=== PATIENT | female | born 1950 | race Caucasian/White ===

== ENCOUNTER → 2023-02-14 13:30 | Outpatient (CLI) | payer OTHER, SELFPAY ==
--- NOTE | 2023-02-14 13:36 | DI.MRI.S_ITS ---
PROCEDURE: MR LUMBAR SPINE WO CON INDICATIONS: Spinal stenosis, lumbar region with neurogenic cla TECHNIQUE: Noncontrast sagittal T1 spin echo and T2 fast echo, sagittal STIR, and T2 fast spin echo through the lumbar spine. In cases with scoliosis, additional coronal T2 fast spin echo may be performed. COMPARISON: [facility] Mclean, CR, XR LUMBAR SPINE 2 OR 3 VIEWS, 04/20/2022, 15:07. Outside Film, MR, MR LUMBAR SPINE WITHOUT CONTRAST, 12/14/2020, 11:18. FINDINGS: Image quality: Diagnostic, with note made of motion artifact. Alignment and Curvature: There is mild grade 1 anterolisthesis at the L4-L5 level. Associated pars defects are not seen. Bone Marrow: Marrow is of normal overall signal. No acute vertebral body compression fractures. Spinal Cord: Conus medullaris terminates at the L1 level. Visualized cord demonstrates normal signal and size. Paraspinous Soft Tissues: No paravertebral masses. T12-L1: Normal appearance. L1-L2: Normal appearance. L2-L3: Mild loss of disc height is seen. Loss of disc signal is seen. Moderate disc bulge is seen, which is eccentric to the right, with a right subarticular/foraminal disc protrusion, as on series 6, image 17. Moderate facet joint hypertrophy is seen. There is moderate bilateral neural foraminal narrowing seen, right worse than left. Moderate central canal narrowing is seen. These imaging findings have progressed compared to the prior study. L3-L4: Moderate loss of disc height is seen. Loss of disc signal is seen. Moderate disc bulge is seen, which is eccentric to the right. There is a right foraminal disc protrusion. There is a focal annular fissure seen posteriorly. At least moderate facet hypertrophy is seen at this level. There is at least moderate bilateral neural foraminal narrowing seen. Moderate to severe central canal narrowing is seen, as on series 6, image 23. There is mild progression compared to 2020. L4-L5: There is at least moderate loss of disc height and disc signal seen. Reactive marrow endplate changes are seen, which are hyperintense on T1-weighted and T2-weighted imaging and most consistent with fatty metaplasia (Modic type II changes). At least moderate disc bulge is seen, which is eccentric to the left. There is a mild central disc extrusion, with mild superior migration of the disc material. At least moderate facet hypertrophy is seen. Associated hypertrophy of the ligamentum flavum can be seen. There is at least moderate bilateral neural foraminal narrowing seen. There is a degree of compression seen upon the exiting nerve roots. Severe central canal narrowing is seen, as on series 5, image 13. These degenerative changes are mildly progressed compared to the 2020 prior. L5-S1: The disc height is well-preserved. Loss of disc signal is seen at this level. Moderate disc bulge is seen, which is eccentric to the right. There is a superimposed central disc extrusion, with mild inferior migration of the disc material. Moderate facet joint hypertrophy is seen. There is moderate left-sided neural foraminal narrowing. Moderate to severe right-sided neural foraminal narrowing is seen, with a degree of compression upon the exiting right L5 nerve root. Moderate central canal narrowing is seen. These imaging findings have progressed compared to the prior study. IMPRESSION: Multiple levels of lumbar spine degenerative change can be seen, which are overall worst at the L4-L5 level. These degenerative changes are progressed at several levels compared to 2020. Dictated by: Scott Coburn M.D. on 02/14/2023 at 13:57 Approved by: Scott Coburn M.D. on 02/14/2023 at 14:02
== END ==
PROVIDERS: PCP Family Medicine; Referring Provider Physical Medicine & Rehabilitation; Visit Provider Physical Medicine & Rehabilitation
DX: M48.062 Spinal stenosis, lumbar region with neurogenic claudication (principal); M47.816 Spondylosis without myelopathy or radiculopathy, lumbar region; M47.817 Spondylosis without myelopathy or radiculopathy, lumbosacral region
CPT/HCPCS: 72148

== ENCOUNTER 2025-02-03 11:19 | Observation (INO) | payer OTHER, SELFPAY ==
[2025-02-03] VITALS (27 sets, daily range): BP systolic 135–201; BP diastolic 76–109; PULSE 57–93; RESP 15–26; TEMP 36.3–37.1; O2SAT 95–100; BMI 34.1
--- NOTE | 2025-02-03 11:22 | EKG_ITS ---
[facility] [address] [place] [address] Test Date: 2025-02-03 Pat Name: Vanessa Plaza Department: [facility] Room: Gender: Female [employer]: CHELSIE : 1950 Requested By: Order Number: [id number] Reading MD: Eric Garcia MD Measurements Intervals [place] Rate: 54 P: 55 NC: 144 QRS: -49 QRSD: 88 T: 17 QT: 420 QTc: 398 Interpretive Statements Sinus bradycardia Possible Left atrial enlargement Left anterior fascicular block Nonspecific ST and T wave abnormality NO PRIOR TRACING Electronically Signed On 02-03-2025 11:57:52 PDT by Eric Garcia MD
--- NOTE | 2025-02-03 11:22 | DI.RAD.S_ITS ---
PROCEDURE: XR CHEST 1V INDICATIONS: Chest Pain TECHNIQUE: One view of the chest was acquired. COMPARISON: None. FINDINGS: Surgical changes and devices: None. Lungs and pleura: Lungs are clear. No pleural effusions or pneumothorax. Mediastinum: Mediastinal contours appear normal. Heart size is normal. Bones and chest wall: No suspicious bony lesions. Overlying soft tissues appear unremarkable. IMPRESSION: No acute cardiopulmonary abnormality is seen. Dictated by: Edgardo Shaikh M.D. on 02/03/2025 at 12:08 Approved by: Edgardo Shaikh M.D. on 02/03/2025 at 12:08
[2025-02-03 12:27] LABS: Add Manual Diff / Slide Review NO; Hematocrit 38.6 % (36-46); Hemoglobin 13.0 g/dL (12.0-16.0); Lymphocytes Absolute Auto 1400 /uL (1100-4500); Mean Corpuscular HGB Conc 33.8 % (30-36); Mean Corpuscular Hemoglobin 27.6 PG (26-34); Mean Corpuscular Volume 81.8 fL (80-100); Platelet Count 261 X10^3/uL (150-400)
[2025-02-03 12:38] LABS: INR 1.0 (0.9-1.3); Prothrombin Time 11.5 SECONDS (9.4-12.5)
[2025-02-03 12:40] LABS: Alanine Aminotransferase 23 IU/L (<35); Albumin 4.7 g/dL (3.5-5.0); Albumin Globulin Ratio 1.3 (1.0-2.8); Alkaline Phosphatase 78 U/L (38-126); Blood Urea Nitrogen 25 mg/dL (7-17); Calcium 9.6 mg/dL (8.4-10.2); Carbon Dioxide 26 mmol/L (22-32); Chloride 105 mmol/L (98-107); Creatine Kinase 123 U/L (30-135); Estimated Glomerular Filt Rate > 60 mL/min (>60); Globulin 3.6 g/dL (1.7-4.1); Glucose 95 mg/dL (70-99); HEMOLYSIS < 15 (0-50); Lipase 44 U/L (23-300); Magnesium 2.3 mg/dL (1.6-2.3); Potassium 4.0 mmol/L (3.4-5.1); Sodium 139 mmol/L (137-145); Total Protein 8.3 g/dL (6.3-8.2)
[2025-02-03 12:41] LABS: PTT Partial Thromboplastin Tim 29 SECONDS (25.1-36.5)
[2025-02-03 12:51] LABS: NT-proBNP (BNP-Adult 18+) 234 pg/mL (<125); Troponin I < 0.012 ng/mL (0.01-0.034)
[2025-02-03 14:54] LABS: Troponin I 0.027 ng/mL (0.01-0.034)
--- NOTE | 2025-02-03 17:00 | ED.CHESTPAIN ---
HPI - Chest Pain General Chief Complaint: Chest Pain Stated Complaint: chest pain moving up to her face Time Seen by Provider: 02/03/25 15:15 Source: patient Mode of arrival: Ambulatory Limitations: no limitations History of Present Illness HPI narrative: 74-year-old woman with a history of reflux, hypothyroidism prior hypertension but after losing 20 lb was able to discontinue medications with blood pressures consistently in the 120 range presents with midsternal chest pain radiating up into her chest started at 10:45 a.m. today. Associated with mild dizziness, no cardiac history. Pain started while she was at rest. Pain today lasted approximately 6 hours. She describes his pain is significantly different from any reflux pain she has ever had. She notes she has been more tired over the last week but attributes that to some lower back pain. No reports of dyspnea, exertional dyspnea or orthopnea. Related Data Allergies Allergy/AdvReac Type Severity Reaction Status Date / Time No Known Drug Allergies Allergy Verified 02/03/25 17:39 Review of Systems Review of Systems Narrative: Pertinent positive and negative findings as per HPI Patient History Medical History (Updated 02/03/25 @ 17:40 by Lauren Angel MD) Low back pain Acid reflux Hypothyroidism (acquired) Social History household members: spouse alcohol intake: current Smoking Status: Never smoker Exam Initial Vital Signs Initial Vital Signs: Vital Signs Temperature 98.8 F 02/03/25 11:26 Pulse Rate 93 H 02/03/25 11:26 Respiratory Rate 18 02/03/25 11:26 Blood Pressure 175/93 H 02/03/25 11:26 Pulse Oximetry 98 02/03/25 11:26 Oxygen Delivery Method Room Air 02/03/25 11:26 General: Healthy appearing, in no acute distress. Able to give a complete and coherent history. Well-nourished well-developed HEENT: Moist mucous membranes, normal sclera with reactive pupils, Respiratory: Lungs are clear to auscultation, no wheezing no rales no rhonchi. Full and symmetrical air movement Cardiac: Regular rate and rhythm no murmurs no bruits Abdomen: Soft, nontender, no rebound or guarding, no flank pain Skin: Warm and dry, no rashes Neurologic: Grossly neurologically intact with no obvious asymmetries or abnormalities Extremities: No trauma, well perfused Psych: Cooperative, appropriate insight and affect Course Orders Ordered: ED Orders 02/03/25 11:22 XR chest 1V Stat EKG-12 Lead Stat 02/03/25 12:18 Complete Blood Count AUTO DIFF Stat Comprehensive Metabolic Panel Stat Lipase Stat Magnesium Stat NT-proBNP (BNP-Adult 18+) Stat PTT Partial Thromboplastin Marbin Stat Prothrombin Time INR Stat Troponin & CK Cardiac Panel Stat 02/03/25 14:20 Troponin I Stat Discontinued Medications Aspirin (Aspirin 81 Mg Chew Tab) 324 mg PO NOW ONE Stop: 02/03/25 11:23 Vital Signs Vital signs: Vital Signs - 8 hr 02/03/25 11:26 02/03/25 14:17 02/03/25 14:18 Temperature 98.8 F Pulse Rate 93 H 60 Respiratory Rate 18 23 Blood Pressure 175/93 H 189/94 H Pulse Oximetry 98 98 Oxygen Delivery Method Room Air 02/03/25 14:18 02/03/25 14:30 02/03/25 14:30 Temperature Pulse Rate 57 L 58 L Respiratory Rate 17 18 Blood Pressure 185/99 H Pulse Oximetry 99 99 Oxygen Delivery Method 02/03/25 15:49 02/03/25 16:00 02/03/25 16:09 Temperature Pulse Rate 63 61 Respiratory Rate 16 Blood Pressure 195/99 H Pulse Oximetry 98 96 Oxygen Delivery Method 02/03/25 16:09 02/03/25 16:14 02/03/25 16:17 Temperature Pulse Rate 64 63 64 Respiratory Rate 17 21 23 Blood Pressure Pulse Oximetry 100 99 99 Oxygen Delivery Method 02/03/25 16:17 Temperature Pulse Rate Respiratory Rate Blood Pressure 186/88 H Pulse Oximetry Oxygen Delivery Method MDM - Chest Pain Lab Data 02/03/25 12:18 02/03/25 12:18 Labs: Lab Results 02/03/25 02/03/25 Range/Units 12:18 14:20 WBC 6.0 (4.5-11.0) X10^3/uL RBC 4.72 (4.0-5.2) X10^6/uL Hgb 13.0 (12.0-16.0) g/dL Hct 38.6 (36-46) % MCV 81.8 (80-100) fL MCH 27.6 (26-34) PG MCHC 33.8 (30-36) % RDW 16.7 H (11.6-14.8) % Plt Count 261 (150-400) X10^3/uL Neut % (Auto) 64.7 (50-75) % Lymph % (Auto) 23.1 L (25-40) % [place] % (Auto) 8.8 (3-14) % Eos % (Auto) 2.9 (2-4) % Baso % (Auto) 0.5 (0-2) % Neut # (Auto) 3900 (9868-3957) /uL Lymph # (Auto) 1400 (0865-5955) /uL [place] # (Auto) 500 (0-900) /uL Eos # (Auto) 200 (0-450) /uL Baso # (Auto) 0 (0-100) /uL PT 11.5 (9.4-12.5) SECONDS INR 1.0 (0.9-1.3) APTT 29 (25.1-36.5) SECONDS Sodium 139 (137-145) mmol/L Potassium 4.0 (3.4-5.1) mmol/L Chloride 105 (98-107) mmol/L Carbon Dioxide 26 (22-32) mmol/L BUN 25 H (7-17) mg/dL Creatinine 0.99 (0.52-1.04) mg/dL Estimated GFR > 60 (>60) mL/min BUN/Creatinine Ratio 25.3 H (6-22) Glucose 95 (70-99) mg/dL Calcium 9.6 (8.4-10.2) mg/dL Magnesium 2.3 (1.6-2.3) mg/dL Total Bilirubin 0.6 (0.2-1.3) mg/dL AST 39 H (14-36) IU/L ALT 23 (<35) IU/L Alkaline Phosphatase 78 (38-126) U/L Total Creatine Kinase 123 (30-135) U/L Troponin I < 0.012 0.027 (0.01-0.034) ng/mL NT-Pro-B Natriuret Pep 234 H (<125) pg/mL Total Protein 8.3 H (6.3-8.2) g/dL Albumin 4.7 (3.5-5.0) g/dL Globulin 3.6 (1.7-4.1) g/dL Albumin/Globulin Ratio 1.3 (1.0-2.8) Lipase 44 (23-300) U/L Imaging Data CT scan - chest: Radiologist's Impression: PROCEDURE: CT ANGIO CHEST PE PROTOCOL INDICATIONS: Chest pain, elevated D-dimer TECHNIQUE: After the administration of intravenous contrast, 2 mm thick sections acquired from the pulmonary apices to the posterior costophrenic angles. 3-dimensional maximum intensity projection (MIP) coronal and sagittal reformats were then acquired through the thorax. For radiation dose reduction, the following was used: automated exposure control, adjustment of mA and/or kV according to patient size. COMPARISON: None. FINDINGS: Image quality: Diagnostic. Pulmonary arteries: Pulmonary arteries are normal in size, and demonstrate no intraluminal filling defects to suggest central pulmonary embolism. Lower Neck: No enlarged lymph nodes. Thyroid: No thyroid nodules which require sonographic follow up, per consensus guidelines. Axillae: No enlarged lymph nodes. Chest Wall: Unremarkable. Bones: No suspicious osseous lesion. Lungs and Pleura: No pneumothorax or pleural effusions. Right lower lobe pulmonary nodule measuring 0.4 cm, (5/140). Heart: Heart size is normal. No pericardial effusion. Thoracic Vessels: No aortic aneurysm. Mediastinum and Janey: No enlarged lymph nodes. Esophagus: No wall thickening. No hiatal hernia. Upper Abdomen: Visualized upper abdomen solid organs and bowel loops appear normal. IMPRESSION: 1. No pulmonary embolism. 2. No acute airspace opacity. Dictated by: Jamel Renee M.D. on 02/03/2025 at 21:53 MDM Narrative Medical decision making narrative: CC: Chest pain at rest Complicating co-morbidities: Hypothyroidism, reflux, blood pressure back to normal after a 20 lb weight loss and medications have been discontinued Data collected from: patient Differential considered: Reflux, pulmonary disease, pneumothorax, acute coronary syndrome, unstable angina Exam documented above, pertinent findings include: Exam is entirely benign Lab Test results independently reviewed as above. Pertinent findings: CBC is unremarkable Chemistries are reassuring Troponin 1 and 2 are within normal limits D-dimer is elevated CT scan is ordered Independently reviewed EKG: EKG shows a rate of 54 probable left anterior fascicular block and nonspecific STT wave changes, no criteria for STEMI Imaging studies independently reviewed: Chest x-ray is unremarkable CT angiogram of the chest does not show pulmonary embolism Consultations: Discussed with Cardiology, . Agrees with beginning nitro paste, hospital admission with echocardiogram and stress test in the morning Treatments: Aspirin, nitro paste Discussion: 74-year-old woman with no previous history of cardiac issues blood pressure is well controlled with diet and exercise only presents with 6 hours of substernal chest pain radiating up into the shoulder left jaw and left face similar episode yesterday lasting approximately 30 minutes, both started while she was sitting working on her computer. Heart score equals 6 which is high risk. Given her continued elevated blood pressure in discussion with Cardiology and with shared decision-making in discussion with the patient we will be admitting her overnight for continued cardiac rule out with anticipation of echocardiogram and stress testing in the morning to further stratify Cardiac risk. Patient clearly understands that she needs to let us know she has any recurrent pain. If she does want to be started on heparin. Currently pain-free but hypertensive we will place her on half an inch of nitro paste and review blood pressures. She is somewhat bradycardic, we will not add beta blockers at this time. Discussed with admitting hospitalist service and admission accepted. Discharge Plan Departure Patient Disposition: Admitted as Observation Clinical Impression: Chest pain Qualifiers: Chest pain type: unspecified Qualified Code(s): R07.9 - Chest pain, unspecified Admit Date/Time: 02/03/25 18:15 Admit Provider: Ricardo Yang
--- NOTE | 2025-02-03 17:13 | PC.NURSE ---
Patient reports center chest pain radiating to right and up to jaw.
--- NOTE | 2025-02-03 17:32 | P.HP_ITS ---
History of Present Illness History of Present Illness Date Patient Seen: 02/03/25 Chief complaint: chest pain moving up to her face Narrative: Chief complaint: Atypical symptoms of chest pain with radiation History of present illness: 02/03: Midsternal substernal chest pain radiating to the back lasting about 6 hours associated with dizziness x2 Findings in the emergency department negative troponin EKG nonacute chest x-ray is normal D-dimer is pending Review of systems: No fever or chills rigors No unusual weight loss or weight gain No nausea vomiting diarrhea No urinary symptom No paresis Physical examination: Elderly female in no acute distress HEENT unremarkable Neck no carotid bruits Heart rate and rhythm regular Lungs clear Abdomen nontender Extremities no edema Assessment and plan Atypical chest symptoms: * Check D-dimer * CTA chest if positive * Exercise stress test if the 2 above or negative in the morning * Echocardiogram in the morning 55 minutes were involved in evaluation of this patient including direct [id number] evaluation the patient physical examination and discussion with ER provider [facility] Medical History (Updated 02/03/25 @ 17:40 by Lauren Angel MD) Low back pain Acid reflux Hypothyroidism (acquired) Social History household members: spouse Smoking Status: Never smoker Meds Home Medications and Allergies Allergies Allergy/AdvReac Type Severity Reaction Status Date / Time No Known Drug Allergies Allergy Verified 02/03/25 17:39 Exam Vital Signs (past 8 hours): - 02/03/25 11:26 02/03/25 14:17 02/03/25 14:18 Temperature 98.8 F Pulse Rate 93 H 60 Respiratory Rate 18 23 Blood Pressure 175/93 H 189/94 H Pulse Oximetry 98 98 Oxygen Delivery Method Room Air 02/03/25 14:18 02/03/25 14:30 02/03/25 14:30 Temperature Pulse Rate 57 L 58 L Respiratory Rate 17 18 Blood Pressure 185/99 H Pulse Oximetry 99 99 Oxygen Delivery Method 02/03/25 15:49 02/03/25 16:00 02/03/25 16:09 Temperature Pulse Rate 63 61 Respiratory Rate 16 Blood Pressure 195/99 H Pulse Oximetry 98 96 Oxygen Delivery Method 02/03/25 16:09 02/03/25 16:14 02/03/25 16:17 Temperature Pulse Rate 64 63 64 Respiratory Rate 17 21 23 Blood Pressure Pulse Oximetry 100 99 99 Oxygen Delivery Method 02/03/25 16:17 02/03/25 16:30 02/03/25 16:30 Temperature Pulse Rate 64 Respiratory Rate 19 Blood Pressure 186/88 H 178/93 H Pulse Oximetry 99 Oxygen Delivery Method 02/03/25 17:00 02/03/25 17:00 Temperature Pulse Rate 64 Respiratory Rate 22 Blood Pressure 181/96 H Pulse Oximetry 98 Oxygen Delivery Method Oxygen Delivery Method Room Air Objective Labs 02/03/25 12:18 02/03/25 12:18 Labs: Laboratory Results - last 24 hr 02/03/25 02/03/25 12:18 14:20 WBC 6.0 RBC 4.72 Hgb 13.0 Hct 38.6 MCV 81.8 MCH 27.6 MCHC 33.8 RDW 16.7 H Plt Count 261 Neut % (Auto) 64.7 Lymph % (Auto) 23.1 L [place] % (Auto) 8.8 Eos % (Auto) 2.9 Baso % (Auto) 0.5 Neut # (Auto) 3900 Lymph # (Auto) 1400 [place] # (Auto) 500 Eos # (Auto) 200 Baso # (Auto) 0 PT 11.5 INR 1.0 APTT 29 Sodium 139 Potassium 4.0 Chloride 105 Carbon Dioxide 26 BUN 25 H Creatinine 0.99 Estimated GFR > 60 BUN/Creatinine Ratio 25.3 H Glucose 95 Calcium 9.6 Magnesium 2.3 Total Bilirubin 0.6 AST 39 H ALT 23 Alkaline Phosphatase 78 Total Creatine Kinase 123 Troponin I < 0.012 0.027 NT-Pro-B Natriuret Pep 234 H Total Protein 8.3 H Albumin 4.7 Globulin 3.6 Albumin/Globulin Ratio 1.3 Lipase 44 Assessment & Plan Time-Based Coding :: [TOTAL MINUTES] spent with patient and on the chart (including review of chart, obtaining history, exam, reviewing outside data, placing orders, documenting exam and treatment plan, and counseling patient) on [DATE].
[2025-02-03] MEDS: NITROGLYCERIN OINT 1 INCH/GM OINT...G. 0.5 INCH TOP (17:40)
[2025-02-03] MEDS: ASPIRIN 81 MG CHEW TAB 324 MG PO (17:40)
--- NOTE | 2025-02-03 18:36 | PC.NURSE ---
Patient eating dinner.
--- NOTE | 2025-02-03 18:46 | DI.CT.S_ITS ---
PROCEDURE: CT ANGIO CHEST PE PROTOCOL INDICATIONS: Chest pain, elevated D-dimer TECHNIQUE: After the administration of intravenous contrast, 2 mm thick sections acquired from the pulmonary apices to the posterior costophrenic angles. 3-dimensional maximum intensity projection (MIP) coronal and sagittal reformats were then acquired through the thorax. For radiation dose reduction, the following was used: automated exposure control, adjustment of mA and/or kV according to patient size. COMPARISON: None. FINDINGS: Image quality: Diagnostic. Pulmonary arteries: Pulmonary arteries are normal in size, and demonstrate no intraluminal filling defects to suggest central pulmonary embolism. Lower Neck: No enlarged lymph nodes. Thyroid: No thyroid nodules which require sonographic follow up, per consensus guidelines. Axillae: No enlarged lymph nodes. Chest Wall: Unremarkable. Bones: No suspicious osseous lesion. Lungs and Pleura: No pneumothorax or pleural effusions. Right lower lobe pulmonary nodule measuring 0.4 cm, (5/140). Heart: Heart size is normal. No pericardial effusion. Thoracic Vessels: No aortic aneurysm. Mediastinum and Janey: No enlarged lymph nodes. Esophagus: No wall thickening. No hiatal hernia. Upper Abdomen: Visualized upper abdomen solid organs and bowel loops appear normal. IMPRESSION: 1. No pulmonary embolism. 2. No acute airspace opacity. Dictated by: Jamel Renee M.D. on 02/03/2025 at 21:53 Approved by: Jamel Renee M.D. on 02/03/2025 at 21:59
--- NOTE | 2025-02-03 18:58 | CM.DANOTE ---
DCP Assessment Note: Pt is a 74yo female, resident of [place], is admitted for chest pain. Pt lives in a house with , Michael. Pt's Primary Care Provider is Dr. Jacky Fernando ([facility]) and insurance is [employer] Advantage. Reviewed chart and discussed with multidisciplinary team pt's medical status and initial discharge needs. Per ED Provider, pt to be admitted for continued observation - echocardiogram and stress test scheduled for tomorrow. DCP met w/patient at bedside; introduced self and role. Patient was found in bed, alert and oriented, cooperative with assessment. Pt confirmed living situation and good support in . Pt expressed preference in discharge home when cleared. Pt has no prior history of home health or SNF Rehab. Pt agreeable to working with therapies and following their recommendations. Plan: Anticipating dc home with spouse to transport when medically cleared. CM team will follow closely for coordination of discharge plans. KATHRYN Sin Discharge Planning/Care Management CM Discharge Assessment Start: 02/03/25 18:55 Freq: Status: Active Protocol: Document 02/03/25 18:55 MW (Rec: 02/03/25 18:57 MW [id number]) Discharge Planning Assessment Assigned Discharge MARVIN Kenney Sales Exhibitor Provider Dr. Jacky Fernando Insurance [employer] [facility] DPOA/Assigned Michael Plaza, Spouse Designee Name Contact Information [phone] Advance Directives? No Has Patient been No admitted in last 30 days? Prior Living House Arrangements Household Members spouse Type of Drives own vehicle transporation used prior to admit Independent with ADL Yes 's Is patient alert and Yes oriented? Caregiver for No Another Discharge Plan Home Transportation Spouse Arrangement Referrals Initiated None needed Review Status In Process Please Provide Date 02/03/25 Initial DC Assessment Was Performed Next Review Type Continued Stay Review
[2025-02-04] MEDS: SODIUM CHLORIDE 0.9% 1,000 ML 50 ML IV (01:38)
[2025-02-04] MEDS: ACETAMINOPHEN 325 MG TABLET 650 MG PO (02:26)
[2025-02-04 03:00] VITALS: BP 114/64; PULSE 75; RESP 18; TEMP 36.8; O2SAT 94
[2025-02-04 08:00] VITALS: BP 146/76; PULSE 77; RESP 16; TEMP 36.4; O2SAT 97
--- NOTE | 2025-02-04 08:27 | DI.ECHO.S_ITS ---
[facility] : : [address] : : [place] : : [id number] : : Phone: [phone] Echocardiogram Report + + :Name: KAREN LASSITER Study Date: 02/04/2025 Height: 75 in : :[facility] ReadingLocation: Weight: 174 lb : : Gender: Female BSA: 2.1 m2 : :: 1950 Age: 74 yrs BP: 140/82 mmHg: :Reason For Study: Cardiac murmur : :Ordering Physician: CALLI, : :DARRYN Performed By: Twin Saunders : :Referring: DARRYN MCCURDY : + + Interpretation Summary The left ventricle is normal in size. Left ventricular systolic function is normal. The ejection fraction is estimated to be 60-65%. There are no focal wall motion abnormalities. Grade I diastolic dysfunction with normal left atrial pressure. The right ventricle is normal in size and function. Pulmonary artery pressures cannot be estimated because of the lack of a measurable TR jet velocity but the IVC suggests a CVP of around 3 mmHg. The left atrial size is normal. There is no significant valvular heart disease. The aortic root is normal size. Procedure: A two-dimensional transthoracic echocardiogram with color flow and Doppler was performed. The study quality was technically adequate. There is no prior echocardiogram noted for this patient. The patient was in normal sinus rhythm during the exam. Left Ventricle: The left ventricle is normal in size. Left ventricular wall thickness is mildly increased. Left ventricular systolic function is normal. The ejection fraction is estimated to be 60-65%. There are no focal wall motion abnormalities. Grade I diastolic dysfunction with normal left atrial pressure. Right Ventricle: The right ventricle is normal in size and function. Atria: The left atrial size is normal. The right atrium is normal in size. There is no Doppler evidence for an interatrial shunt. Mitral Valve: The mitral valve leaflets appear to open well. There is no mitral valve stenosis. There is trace mitral regurgitation. Aortic Valve: The aortic valve is trileaflet. Thickening of the left coronary cusp. There is no aortic valve stenosis. There is trace aortic regurgitation. Tricuspid Valve: The tricuspid valve leaflets are thin and pliable. There is trace tricuspid regurgitation. Pulmonary artery pressures cannot be estimated because of the lack of a measurable TR jet velocity but the IVC suggests a CVP of around 3 mmHg. Pulmonic Valve: The pulmonic valve is not well seen, but is grossly normal. There is a trace or physiologic amount of pulmonic regurgitation. There is no significant valvular heart disease. Great Vessels: The aortic root is normal size. The ascending aorta is normal in size. The aortic arch could not be visualized. The pulmonary is not well visualized. The IVC is of normal diameter and collapses greater than 50% with a sniff. This suggests a low right atrial pressure of 3 mm Hg. Pericardium/ Pleura There is no pericardial effusion. MMode/2D Measurements & Calculations LVIDd: 4.7 cm LVOT diam: 2.0 cm LVIDs: 2.9 cm Ao root diam: 2.9 cm FS: 37.7 % asc Aorta Diam: 3.2 cm IVSd: 1.1 cm LVPWd: 0.95 cm LV clemente. diameter/BSA (cm/m^2): 2.3 LV sys. diameter/BSA (cm/m^2): 1.4 LA A2 area: 17.3 cm2 IVC diam: 1.3 cm LA A4 area: 13.7 cm2 LA length (vol): 4.7 cm LA vol: 42.7 ml LA vol index: 20.7 ml/m2 RVD1 (basal): 2.1 cm RVD2 (mid): 2.1 cm TAPSE: 2.0 cm Doppler Measurements & Calculations Ao V2 max: 153.4 cm/sec LVOT Max Aneudy: 98.8 cm/sec Ao V2 mean: 112.3 cm/sec LV V1 max P.9 mmHg Ao max P.4 mmHg LV V1 VTI: 18.6 cm Ao mean P.5 mmHg MERCEDES(I,D): 2.0 cm2 Ao V2 VTI: 29.2 cm MERCEDES(V,D): 2.1 cm2 sev ratio: 0.64 MERCEDES indexed to BSA (cm^2/m^2): 0.99 MV E max aneudy: 66.8 cm/sec TR max aneudy: 119.5 cm/sec MV A max aneudy: 81.3 cm/sec TR max P.3 mmHg MV E/A: 0.82 PA V2 max: 89.1 cm/sec Med Peak E' Aneudy: 5.5 cm/sec PA V2 mean: 64.5 cm/sec E/E' med: 12.3 PA mean P.8 mmHg Lat Peak E' Aneudy: 7.3 cm/sec PA pr(Accel): 34.0 mmHg E/E' lat: 9.1 E/e' average: 10.7 MV dec time: 0.18 sec SV(LVOT): 59.6 ml Reading Physician:10:35 AM
--- NOTE | 2025-02-04 08:28 | PM.CN ---
History of Present Illness Consult details Date Patient Seen: 02/04/25 Time Patient Seen: 08:28 Chief complaint: chest pain moving up to her face Reason for consult: Chest pain Narrative: 74-year-old female with past medical history of hypertension admitted to the hospital with substernal chest pain. Her initial workup was negative for acute coronary syndrome. Patient came to the emergency room with substernal chest pain lasting 6 hours. She reported this chest pain was different from her reflux symptoms. Initial workup in the emergency room was negative for electrical and biochemical changes for acute coronary syndrome. Given her age and heart score of 4 moderate risk and risk of major adverse cardiac events of 12-16% we decided to admit her to the hospital for further risk stratification of her chest pain symptoms. Meds Home Medications and Allergies Allergies Allergy/AdvReac Type Severity Reaction Status Date / Time No Known Drug Allergies Allergy Verified 02/03/25 17:39 Review of Systems Review of Systems ROS: Yes All systems reviewed with the patient and are negative except as otherwise documented Respiratory Respiratory: Reports system reviewed and no additional complaints, except as documented Exam Vital Signs (past 8 hours): - 02/04/25 03:00 02/04/25 08:00 Temperature 98.2 F 97.5 F L Pulse Rate 75 77 Respiratory Rate 18 16 Blood Pressure 114/64 146/76 H Pulse Oximetry 94 97 Oxygen Flow Rate 0 Oxygen Delivery Method Room Air Oxygen Flow Rate 0 Const General: cooperative, healthy appearing, comfortable and well developed Orientation: alert, awake and oriented x3 HENMT Head: normal to inspection Eyes General: appearance normal, both eyes and all related structures Neck Neck: normal visual inspection Chest Chest: normal inspection of the chest Resp Effort & Inspection: normal respiratory effort and able to speak in complete sentences Auscultation: clear to auscultation bilaterally Cardio Palpation: normal PMI Rate: regular rate Heart Sounds: S1 normal, S2 normal and murmur Bruits: carotid bruit Other: Right carotid bruit louder than left. Back/Spine/Pelvis Back: normal to inspection Skin General: no rashes or lesions noted Neuro General: patient alert, patient awake and patient oriented x3 Psych Appearance: grossly normal Objective ECG Impression: Normal sinus rhythm with left anterior fascicular block. No prior ekg is available for comparison. Labs 02/03/25 12:18 02/03/25 12:18 Labs: Laboratory Results - last 24 hr 02/03/25 02/03/25 02/03/25 12:18 14:20 17:57 WBC 6.0 RBC 4.72 Hgb 13.0 Hct 38.6 MCV 81.8 MCH 27.6 MCHC 33.8 RDW 16.7 H Plt Count 261 Neut % (Auto) 64.7 Lymph % (Auto) 23.1 L [place] % (Auto) 8.8 Eos % (Auto) 2.9 Baso % (Auto) 0.5 Neut # (Auto) 3900 Lymph # (Auto) 1400 [place] # (Auto) 500 Eos # (Auto) 200 Baso # (Auto) 0 PT 11.5 INR 1.0 APTT 29 D-Dimer 1018 H Sodium 139 Potassium 4.0 Chloride 105 Carbon Dioxide 26 BUN 25 H Creatinine 0.99 Estimated GFR > 60 BUN/Creatinine Ratio 25.3 H Glucose 95 Calcium 9.6 Magnesium 2.3 Total Bilirubin 0.6 AST 39 H ALT 23 Alkaline Phosphatase 78 Total Creatine Kinase 123 Troponin I < 0.012 0.027 NT-Pro-B Natriuret Pep 234 H Total Protein 8.3 H Albumin 4.7 Globulin 3.6 Albumin/Globulin Ratio 1.3 Lipase 44 PFSH Medical History Low back pain Acid reflux Hypothyroidism (acquired) Social History marital status: household members: spouse Safety seatbelt use: always Tobacco & Substance Use Smoking Status: Former smoker alcohol intake: current Assessment & Plan Assessment and plan (1) Chest pain: Qualifiers: Chest pain type: unspecified Qualified Code(s): R07.9 - Chest pain, unspecified Status: Acute Plan Exercise treadmill stress test Echocardiogram already ordered Please notify me results of exercise treadmill stress test or else I will call. Aspirin 81 mg daily Discharge or dispositio based upon test results. Assessment & Plan narrative: 74-year-old female with past medical history of hypertension admitted to the hospital with substernal chest pain. Her initial workup was negative for acute coronary syndrome. Patient came to the emergency room with substernal chest pain lasting 6 hours. She reported this chest pain was different from her reflux symptoms. Initial workup in the emergency room was negative for electrical and biochemical changes for acute coronary syndrome. Given her age and heart score of 4 moderate risk and risk of major adverse cardiac events of 12-16% we decided to admit her to the hospital for further risk stratification of her chest pain symptoms. Coronary risk factors: Age, hypertension. 1. Chest pain Slightly suspicious. Atypical non cardiac. 2. Incidental Cardiac murmur. 3. Hypertension : Currently well controlled with recent weight loss. Time-Based Coding :: [TOTAL MINUTES] spent with patient and on the chart (including review of chart, obtaining history, exam, reviewing outside data, placing orders, documenting exam and treatment plan, and counseling patient) on [DATE].
--- NOTE | 2025-02-04 09:35 | P.DS_ITS ---
History of Present Illness History of Present Illness Date Patient Seen: 02/04/25 Chief complaint: chest pain moving up to her face Narrative: Chief complaint: Atypical symptoms of chest pain with radiation History of present illness: 02/03: Midsternal substernal chest pain radiating to the back lasting about 6 hours associated with dizziness x2 Findings in the emergency department negative troponin EKG nonacute chest x-ray is normal D-dimer is pending Review of systems: No fever or chills rigors No unusual weight loss or weight gain No nausea vomiting diarrhea No urinary symptom No paresis Physical examination: Elderly female in no acute distress HEENT unremarkable Neck no carotid bruits Heart rate and rhythm regular Lungs clear Abdomen nontender Extremities no edema Assessment and plan Atypical chest symptoms: * Check [id number] * CTA chest if positive-negative * Exercise stress test if the 2 above or negative in the morning-negative * Echocardiogram and carotid Doppler as outpatient 35 minutes were involved in evaluation of this patient including direct [id number] evaluation the patient physical examination and discussion with ER provider Discharge Providers Provider Date of admission: 02/03/25 18:15 Discharge Date: 02/04/25 Primary care physician: Jacky Fernando MD Consults: 02/03/25 17:40 Consult to Cardiology Stat Comment: Consulting Provider: Abhi Khan Reason for consultation: chest pain Has provider been notified: Yes Discharge provider: Ricardo Yang MD Exam Vital Signs (past 8 hours): - 02/04/25 03:00 02/04/25 08:00 Temperature 98.2 F 97.5 F L Pulse Rate 75 77 Respiratory Rate 18 16 Blood Pressure 114/64 146/76 H Pulse Oximetry 94 97 Oxygen Flow Rate 0 Oxygen Delivery Method Room Air Oxygen Flow Rate 0 Objective Labs 02/03/25 12:18 02/03/25 12:18 Labs: Laboratory Results - last 24 hr 02/03/25 02/03/25 02/03/25 12:18 14:20 17:57 WBC 6.0 RBC 4.72 Hgb 13.0 Hct 38.6 MCV 81.8 MCH 27.6 MCHC 33.8 RDW 16.7 H Plt Count 261 Neut % (Auto) 64.7 Lymph % (Auto) 23.1 L [place] % (Auto) 8.8 Eos % (Auto) 2.9 Baso % (Auto) 0.5 Neut # (Auto) 3900 Lymph # (Auto) 1400 [place] # (Auto) 500 Eos # (Auto) 200 Baso # (Auto) 0 PT 11.5 INR 1.0 APTT 29 D-Dimer 1018 H Sodium 139 Potassium 4.0 Chloride 105 Carbon Dioxide 26 BUN 25 H Creatinine 0.99 Estimated GFR > 60 BUN/Creatinine Ratio 25.3 H Glucose 95 Calcium 9.6 Magnesium 2.3 Total Bilirubin 0.6 AST 39 H ALT 23 Alkaline Phosphatase 78 Total Creatine Kinase 123 Troponin I < 0.012 0.027 NT-Pro-B Natriuret Pep 234 H Total Protein 8.3 H Albumin 4.7 Globulin 3.6 Albumin/Globulin Ratio 1.3 Lipase 44 PFSH Medical History Low back pain Acid reflux Hypothyroidism (acquired) Social History marital status: household members: spouse seatbelt use: always Smoking Status: Former smoker alcohol intake: current Discharge Plan Discharge Plan Patient Disposition: Home Discharge orders & Medications Prescriptions: New pantoprazole [Protonix] 40 mg tablet,delayed release (DR/EC) 40 mg PO DAILY Qty: 30 0RF sucralfate [Carafate] 100 mg/mL suspension 10 ml PO QID Qty: 420 0RF Rx Instructions: swish in mouth and swallow; use after food/drink amlodipine 5 mg tablet 5 mg PO DAILY Qty: 30 0RF Follow up/Referrals: [facility] [Outside] Abhi Khan MD [Physician, Cardiology] - 1 Week Referral Note: Carotid Doppler and echocardiogram Jacky Fernando MD [Primary Care Provider, Medical] Visit Report/Discharge Packet Stand Alone Forms: Patient Portal/API Discharge Data Primary Care Provider: Jacky Fernando Attending Provider: Ricardo Yang Admit Date/Time: 02/03/25 18:15
--- NOTE | 2025-02-04 11:34 | PC.NURSE ---
Discharge Note Patient A&O, VSS, RA, no complaints of pain/discomfort. Discharge packet reviewed with patient, all questions/concerns addressed. PIV/TELE discontinued. Patient able to dress self and pack all belongings. Patient taken down via wheelchair to POV.
--- NOTE | 2025-02-05 07:29 | DI.NM.S_ITS ---
DATE OF SERVICE: 02/04/2025 EXERCISE TREADMILL STRESS TEST PROCEDURE: Exercise treadmill stress test without imaging. ORDERING PROVIDER: Ricardo Yang M.D. INDICATIONS: The patient is a 74-year-old female admitted with persistent, atypical chest discomfort but normal cardiac enzymes. FINDINGS: 1. The patient was able to exercise for 5 minutes 36 seconds on a standard Joe protocol, suggesting average exercise capacity with an JOHANNA of -2%, achieving 7.0 METS. 2. She had a normal heart rate and blood pressure response to exercise, achieving a maximum heart rate of 127 BPM (86% of her predicted maximum). 3. She had severe exertional dyspnea with stress but oxygen saturation remained 96% at peak exercise. She had no chest discomfort or other anginal symptoms. 4. Her resting ECG shows sinus rhythm with normal ST segments. With stress, there is significant motion artifact that limits the interpretation but the immediate recovery tracings show normal ST segments and no obvious arrhythmias. IMPRESSION: 1. Normal exercise treadmill stress test for ischemia. 2. Average exercise capacity without angina or arrhythmia but severe, limiting dyspnea despite normal oximetry. Vanessa Plaza - /christina/OSCAR doc#: [id number]/job#: [id number] dd: 02/04/2025 12:55:00 dt: 02/04/2025 21:19:00 DICTATING MD/COPIES TO: Geovany Cantrell MD; Ricardo Yang M.D. COPIES MNE: LICO;
== END 2025-02-04 10:30 | disposition home or self-care (01) ==
LOC: ED 17:40 → AC 18:16
PROVIDERS: Emergency Medicine; Admitting Provider Internal Medicine; Emergency Provider Emergency Medicine; PCP Family Medicine; Referring Provider Emergency Medicine; Visit Provider Internal Medicine
DX: R07.89 Other chest pain (principal); R01.1 Cardiac murmur, unspecified; I10 Essential (primary) hypertension; K21.9 Gastro-esophageal reflux disease without esophagitis; E03.9 Hypothyroidism, unspecified; Z87.891 Personal history of nicotine dependence
CPT/HCPCS: 71045; 71275; 80053; 82550; 83690; 83735; 83880; 84484; 85025; 85379; 85610; 85730; 93005; 93017; 99284; G0378; C8929; J7030; Q9957; Q9967

== ENCOUNTER → 2025-04-03 07:14 | Outpatient (CLI) | payer OTHER, SELFPAY ==
[2025-02-03 22:34] VITALS: BMI 34.1
--- NOTE | 2025-04-03 07:15 | DI.NM.S_ITS ---
PROCEDURE: NM BENITO PERF SPECT R&S PHARM Rest and pharmacological stress myocardial perfusion SPECT with gated imaging and ejection fraction RADIOPHARMACEUTICAL: 11.9 mCi Tc-99m tetrafosmin IV at rest and 25.8 mCi Tc-99m tetrafosmin IV at peak effect of pharmacological stress. [id number] was performed. INDICATIONS: Shortness of breath PQRS ATTESTATIONS: Measure 322 - Is this imaging test primarily performed on a low-risk surgery patient for preoperative evaluation within 30 days preceding their low-risk non-cardiac surgery? Low-risk surgery is defined as cardiac or myocardial infarction less than 1%, including (but not limited to) endoscopic procedures, superficial procedures, cataract surgery, and excisional breast surgery: Answer: No Measure 323 - Is this imaging test performed primarily for the monitoring of an asymptomatic patient who had percutaneous coronary intervention on the visit date or within 2 years of the visit date? Answer: No Measure 324 - Is this imaging test performed primarily for the initial detection and risk assessment on an asymptomatic, low coronary heart disease patient? Low CHD risk definition = clinicians should consider the maximum number of available patient factors used to estimate risk based on [place] (ATP III criteria), typically age, gender, diabetes, smoking status, and use of blood pressure medication, and integrate age appropriate estimates for missing elements, such as LDL or standard blood pressure. Answer: No TECHNIQUE: Radiopharmaceutical was injected at peak stress test, and also at rest. SPECT images were obtained. SPECT myocardial perfusion images were displayed in short axis, horizontal long axis, and vertical long axis views. Gated images were reviewed using [employer] software. COMPARISON: None. CARDIAC STRESS: A pharmacologic stress test was performed under the supervision of an attending staff, using an infusion of 0.4 mg of Lexiscan. Hemodynamic data: There is normal blood pressure and heart rate response to pharmacologic stress. Symptoms: The patient denied anginal chest pain. Aminophylline: None EKG: No diagnostic changes of ischemia; no ectopy. FINDINGS: Raw data: There is good myocardial uptake of radiotracer. No significant motion artifacts. Qaeo-hi-lftnc ratio is 0.57 (normal is less than 0.38 for tetrafosmin tracer). Left ventricle function: Gated images demonstrate normal left ventricular wall thickening. No segmental wall motion abnormalities. No transient ischemic dilation; TID is 0.9 (normal less than 1.3). Left ventricle resting end diastolic volume is 89 mL. Left ventricle stress ejection fraction is 85%; normal range is above 45%. Myocardial perfusion: There is normal distribution of activity in the right and left ventricular myocardium. No fixed or reversible perfusion defects. IMPRESSION: Negative Lexiscan myocardial perfusion scan for ischemia and infarction. Dictated by: Silvestre Anna M.D. on 04/03/2025 at 16:48 Approved by: Silvestre Anna M.D. on 04/03/2025 at 16:49
== END ==
LOC: NUCM 07:14
PROVIDERS: PCP Family Medicine; Referring Provider Internal Medicine Cardiovascular Disease; Visit Provider Internal Medicine Cardiovascular Disease
DX: R06.02 Shortness of breath (principal)
CPT/HCPCS: 78452; 93017; A9502; J2785